=== PATIENT | female | born 1970 ===

== ENCOUNTER 2016-07-21 08:57 | Observation (INO) | payer OTHER ==
--- NOTE | 2016-07-21 10:13 | ED PDOC ---
Arrival/HPI - General Chief Complaint: ENT Problem Time Seen by Provider: 07/21/16 09:44 Historian: Patient - History of Present Illness Narrative History of Present Illness (Text): 07/21/16 10:10 46-year-old female presents today with a 2 day history of ear pain sore throat nasal congestion and cough. Patient states she's had high fevers at home. Patient states HER-2 children are sick at home with similar symptoms. Patient states they were diagnosed with the flu. Patient denies chest pain or shortness of breath. No abdominal pain. Patient states she took NyQuil yesterday denies difficulty swallowing. Denies difficulty breathing. No other complaints Past Medical History - Provider Review Nursing Documentation Reviewed: Yes - Travel History Have you recently traveled outside [place] w/in the past 3 mons?: No - Infectious Disease Hx of Infectious Diseases: None - Tetanus Immunization Tetanus Immunization: Unknown - Psychiatric Hx Anxiety: Yes Hx Substance Use: No Family/Social History - Physician Review Nursing Documentation Reviewed: Yes Family/Social History: Unknown Family HX Smoking Status: Never Smoked Hx Alcohol Use: No Hx Substance Use: No Allergies/Home Meds Allergies/Adverse Reactions: Allergies No Known Allergies Allergy (Verified 07/21/16 09:25) Home Medications: Home Meds Medication Instructions Recorded Confirmed No Known Home Med 07/21/16 07/21/16 Review of Systems - Review of Systems Constitutional: Fevers, Other (Body aches). absent: Fatigue ENT: Sore Throat, Sinus Congestion Respiratory: Cough. absent: SOB Cardiovascular: absent: Chest Pain, Palpitations Gastrointestinal: absent: Abdominal Pain, Nausea, Vomiting Genitourinary Female: absent: Dysuria Musculoskeletal: absent: Arthralgias, Back Pain, Neck Pain Skin: absent: Rash, Pruritis Neurological: absent: Headache, Dizziness Psychiatric: absent: Anxiety, Depression Physical Exam Vital Signs Reviewed: Yes Vital Signs Temp Pulse Resp BP Pulse Ox 07/21/16 14:42 82 16 139/65 97 07/21/16 12:25 76 16 100/53 L 97 07/21/16 12:00 98.1 F 07/21/16 10:42 88 16 108/54 L 95 07/21/16 09:22 102.8 F H 100 H 18 139/81 97 Temperature: Febrile Blood Pressure: Normal Pulse: Tachycardic Respiratory Rate: Normal Appearance: Positive for: Well-Appearing, Non-Toxic, Comfortable Pain Distress: Mild Mental Status: Positive for: Alert and Oriented X 3 - Systems Exam Head: Present: Atraumatic Mouth: Present: Moist Mucous Membranes Pharnyx: Present: ERYTHEMA. No: Normal, EXUDATE, TONSILS ENLARGED, Peritonsilar Swelling, Uvular Deviation, Muffled/Hoarse Voice Nose (External): Present: Atraumatic Nose (Internal): Present: Normal Inspection, Clear Mucous. No: Septal Hematoma Neck: Present: Normal Range of Motion, Trachea Midline. No: Lymphadenopathy Respiratory/Chest: Present: Clear to Auscultation, Good Air Exchange. No: Respiratory Distress, Accessory Muscle Use Cardiovascular: Present: Regular Rate and Rhythm, Normal S1, S2. No: Murmurs Abdomen: No: Tenderness Neurological: Present: GCS=15 Skin: Present: Warm, Dry, Normal Color. No: Rashes Psychiatric: Present: Alert Medical Decision Making ED Course and Treatment: 07/21/16 10:12 Patient is nontoxic well appearing in no distress. Vital signs are stable Tolerating p.o. fluids and solids Toradol 60 IM Tylenol 975 by mouth Rapid flu: wnl Rapid strep: wnl cxr;FINDINGS: LUNGS: Minimal linear bibasilar infiltrates are seen which could represent early pneumonia or chronic scarring. There are no prior studies PLEURA: No significant pleural effusion identified. No pneumothorax apparent. CARDIOVASCULAR: Normal. OSSEOUS STRUCTURES: No significant abnormalities. VISUALIZED UPPER ABDOMEN: Normal. OTHER FINDINGS: None. IMPRESSION: Minimal linear bibasilar infiltrates are seen which could represent early pneumonia or chronic scarring. There are no prior studies cbc; wnl cmp: K; 2.9 Patient given a K rider and 40 of potassium by mouth EKG: Normal sinus rhythm at 71 bpm normal axis normal intervals no ST elevations Blood cultures pending Rocephin and Zithromax started IV Case discussed in depth with Dr. Powell; will admit observational status to remote tele for hypokalemia and pneumonia impression; hypokalemia, pneumonia remote tele observation - Lab Interpretations Lab Results: 07/21/16 12:30 07/21/16 12:30 Lab Results 07/21/16 12:30: WBC 3.7 L, RBC 4.01, Hgb 11.9 L, Hct 36.0, MCV 89.8, MCH 29.7, MCHC 33.1, RDW 14.0, Plt Count 191, MPV 10.6, Gran % 69.7 H, Lymph % (Auto) 18.8 L, [place] % (Auto) 10.7 H, Eos % (Auto) 0.3 L, Baso % (Auto) 0.5, Gran # 2.60 , Lymph # 0.7 L, [place] # 0.4, Eos # 0.0, Baso # 0.02, pO2 143 H, VBG pH 7.43, VBG pCO2 43.0, VBG HCO3 28.5 H, VBG Total CO2 29.8 H, VBG O2 Sat (Calc) 99.1 H, VBG Base Excess 3.7 H, VBG Potassium 2.8 L, Glucose 110 H, Lactate 0.9, FiO2 21.0, Sodium 135.0, Potassium 2.9 L* D, Chloride 102.0, Carbon Dioxide 26, Anion Gap 14, BUN 6 L, Creatinine 0.5, Est GFR ( Amer) > 60, Est GFR (Non -Af Amer) > 60, Random Glucose 105, Calcium 8.3 L, Total Bilirubin 0.7, AST 25, ALT 37, Alkaline Phosphatase 48, Total Protein 7.3, Albumin 3.8, Globulin 3.5, Albumin/Globulin Ratio 1.1, Venous Blood Potassium 2.8 L 07/21/16 09:45: Influenza Typ A,B (EIA) Negative for flu a/b, Grp A Beta Strep Ag Negative - RAD Interpretation Radiology Orders: 07/21/16 10:37 CHEST TWO VIEWS (PA/LAT) [RAD] Stat - Medication Orders Current Medication Orders: Potassium Chloride (Potassium Chloride 20 Meq/100 Ml) 100 mls @ 50 mls/hr IVPB ONCE ONE Stop: 07/21/16 15:18 Last Admin: 07/21/16 14:13 Dose: 50 MLS/HR eMAR Start Stop Document 07/21/16 14:13 DIONNA (Rec: 07/21/16 14:14 [id number]) Intravenous Solution Start Date 07/21/16 Start Time 14:14 End Date 07/21/16 End time 16:14 Total Infusion Time 120 Discontinued Medications Acetaminophen (Tylenol 325mg Tab) 975 mg PO STAT STA Stop: 07/21/16 09:45 Last Admin: 07/21/16 10:14 Dose: 975 MG MAR Pain/Vitals Document 07/21/16 10:14 JOCasi (Rec: 07/21/16 10:14 [id number]) Sleep Is patient sleeping during reassessment? No Presence of Pain Presence of Pain Yes Pain Scale Used Pain Scale Used Numeric Azithromycin (Zithromax 500mg In Ns) 250 mls @ 167 mls/hr IVPB STAT STA PRN Reason: Protocol Stop: 07/21/16 14:48 Last Admin: 07/21/16 14:37 Dose: 167 MLS/HR eMAR Start Stop Document 07/21/16 14:37 JOL (Rec: 07/21/16 14:38 [id number]) Intravenous Solution Start Date 07/21/16 Start Time 14:37 End Date 07/21/16 End time 16:07 Total Infusion Time 90 Ceftriaxone Sodium (Rocephin 1 Gram Ivpb) 100 mls @ 200 mls/hr IVPB STAT STA PRN Reason: Protocol Stop: 07/21/16 13:48 Last Admin: 07/21/16 14:14 Dose: 200 MLS/HR eMAR Start Stop Document 07/21/16 14:14 JOCasi (Rec: 07/21/16 14:14 [id number]) Intravenous Solution Start Date 07/21/16 Start Time 14:14 End Date 07/21/16 End time 14:44 Total Infusion Time 30 Ketorolac Tromethamine (Toradol) 60 mg IM STAT STA Stop: 07/21/16 09:45 Last Admin: 07/21/16 10:13 Dose: 60 MG IM Administration Charges Document 07/21/16 10:13 JOCasi (Rec: 07/21/16 10:14 [id number]) Charges for Administration # of IM Administrations 1 Potassium Chloride (K-Dur 20 Meq Er Tab) 40 meq PO STAT STA Stop: 07/21/16 13:20 Last Admin: 07/21/16 14:13 Dose: 40 MEQ Disposition/Present on Arrival - Present on Arrival Any Indicators Present on Arrival: No History of DVT/PE: No History of Uncontrolled Diabetes: No Urinary Catheter: No History of Decub. Ulcer: No History Surgical Site Infection Following: None - Disposition Have Diagnosis and Disposition been Completed?: Yes Diagnosis: Pneumonia, Hypokalemia Disposition: HOSPITALIZED Disposition Time: 13:15 Patient Plan: Observation, Telemetry (remote) Condition: FAIR
--- NOTE | 2016-07-21 12:07 | RAD ---
HISTORY: cough/fever COMPARISON: No prior. TECHNIQUE: Chest PA and lateral FINDINGS: LUNGS: Minimal linear bibasilar infiltrates are seen which could represent early pneumonia or chronic scarring. There are no prior studies PLEURA: No significant pleural effusion identified. No pneumothorax apparent. CARDIOVASCULAR: Normal. OSSEOUS STRUCTURES: No significant abnormalities. VISUALIZED UPPER ABDOMEN: Normal. OTHER FINDINGS: None. IMPRESSION: Minimal linear bibasilar infiltrates are seen which could represent early pneumonia or chronic scarring. There are no prior studies
[2016-07-21 12:55] LABS: ADD MANUAL DIFF? NO
[2016-07-21 12:59] LABS: BASO # 0.02 K/mm3 (0.0-2.0); BASO % 0.5 % (0.0-3.0); EOS % 0.3 % (1.5-5.0); GRAN % 69.7 % (50.0-68.0); LYMPH # 0.7 (1.2-3.4); LYMPH % 18.8 % (22.0-35.0); MEAN CELL VOLUME 89.8 fL (80.0-105.0); MEAN CORPUSCULAR HEMOGLOBIN 29.7 pg (25.0-35.0); MEAN CORPUSCULAR HGB CONC 33.1 g/dl (31.0-37.0); MEAN PLATELET VOLUME 10.6 fl (7.0-11.0); MONO # 0.4 (0.1-0.6); MONO % 10.7 % (1.0-6.0); PLATELET COUNT 191 10^3/uL (120.0-450.0); WHITE BLOOD COUNT 3.7 10^3/ul (4.5-11.0)
[2016-07-21 13:01] LABS: VENOUS BLOOD GAS BASE EXCESS 3.7 mmol/L (0.0-2.0); VENOUS BLOOD PH 7.43 (7.32-7.43)
[2016-07-21 13:06] LABS: ALB/GLOB RATIO 1.1 (1.1-1.8); ALKALINE PHOSPHATASE 48 U/L (38-133); ALT/SGPT 37 U/L (7-56); AST/SGOT 25 U/L (15-39); BILIRUBIN,TOTAL 0.7 mg/dL (0.2-1.3); BLOOD UREA NITROGEN 6 mg/dL (7-21); CALCIUM 8.3 mg/dL (8.4-10.5); CARBON DIOXIDE 26 mmol/L (21-33); CHLORIDE 98 mmol/L (98-107); GFR AFRICAN-AMERICAN > 60; GLUCOSE,RANDOM 105 mg/dL (70-110); SODIUM 135 mmol/L (132-148); TOTAL PROTEIN 7.3 g/dL (5.8-8.3)
[2016-07-21 13:10] LABS: POTASSIUM 2.9 mmol/L (3.6-5.0)
[2016-07-21] MEDS ORDERED: cefTRIAXone 1 gm 100 ML IVPB STA (13:19)
[2016-07-21] MEDS ORDERED: Potassium Chloride 20 mEq ER Tab PO STA (13:19)
[2016-07-21] MEDS ORDERED: Azithromycin 500MG/NS 250ml 250 ML IVPB STA (13:19)
[2016-07-21] MEDS ORDERED: Potassium Chloride 20 mEq 100 ML IVPB ONE (13:19)
--- NOTE | 2016-07-21 15:06 | CP.PCM.PN ---
Subjective - Date & Time of Evaluation Date of Evaluation: 07/21/16 Time of Evaluation: 15:02 - Subjective Subjective: 46 y/o F with PMH of HLD presents to the ED with a 3 day hx of cold like symptoms. Pt states she has been having sore throat, ear pain, and congestion over this time. Pt states it has been getting progressively worse. Pt lives at home with her family and her 2 children have recently had similar symptoms. Pt states she took nyquil at home for her symptoms, but they did not improve. Pt also admits to having a dry cough. Pt denies CP, SOB, N/V/D, dysuria, fever, chills. PMH: HLD Family Hx: Father from lung cancer Surgical Hx: None Social Hx: Denies alcohol, tobacco, and illicit drug use. Lives at home with family. 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 Allergies: NKDA Medication: None Objective - Vital Signs/Intake and Output Vital Signs (last 24 hours): Temp Pulse Resp BP Pulse Ox 98.1 F 82 16 139/65 97 07/21/16 12:00 07/21/16 14:42 07/21/16 14:42 07/21/16 14:42 07/21/16 14:42 - Medications Medications: Current Medications Acetaminophen (Tylenol 325mg Tab) 650 mg PO Q4 PRN PRN Reason: Fever >100.4 F Enoxaparin Sodium (Lovenox) 30 mg SC DAILY OLGA PRN Reason: Protocol Potassium Chloride (Potassium Chloride 20 Meq/100 Ml) 100 mls @ 50 mls/hr IVPB ONCE ONE Stop: 07/21/16 15:18 Last Admin: 07/21/16 14:13 Dose: 50 mls/hr Azithromycin 250 mg/ Sodium (Chloride) 250 mls @ 167 mls/hr IVPB DAILY OLGA PRN Reason: Protocol Ceftriaxone Sodium (Rocephin 1 Gram Ivpb) 100 mls @ 100 mls/hr IVPB DAILY OLGA PRN Reason: Protocol Potassium Chloride 20 meq/ (Sodium Chloride) 1,010 mls @ 100 mls/hr IV .Q10H6M OLGA Pantoprazole Sodium (Protonix Ec Tab) 20 mg PO 0730 OLGA - Constitutional Appears: Non-toxic, No Acute Distress - Head Exam Head Exam: ATRAUMATIC, NORMAL INSPECTION, NORMOCEPHALIC - Eye Exam Eye Exam: EOMI, Normal appearance, PERRL - ENT Exam ENT Exam: Mucous Membranes Moist, Normal Exam, Normal Oropharynx - Neck Exam Neck Exam: Normal Inspection. absent: Lymphadenopathy - Respiratory Exam Respiratory Exam: Clear to Ausculation Bilateral, NORMAL BREATHING PATTERN. absent: Rales, Rhonchi, Wheezes - Cardiovascular Exam Cardiovascular Exam: RRR, +S1, +S2 - GI/Abdominal Exam GI & Abdominal Exam: Soft, Normal Bowel Sounds. absent: Tenderness - Extremities Exam Extremities Exam: Normal Inspection. absent: Calf Tenderness, Pedal Edema - Neurological Exam Neurological Exam: Alert, Awake, Oriented x3 - Psychiatric Exam Psychiatric exam: Normal Affect, Normal Mood - Skin Skin Exam: Intact, Normal Color, Warm Assessment and Plan - Assessment and Plan (Free Text) Plan: 46 y/o F with PMH of HLD presents to the hospital for community acquired pneumonia and incidentally found to be hypokalemic. Chest x-ray shows bibasilar infiltrates. EKG in the ED pending at this time. Pt given a total of 60 Meq of KCL in the ED. Flu and group A strep negative. Pt will be admitted to the medical floors for further care. 1. Community acquired pneumonia - Azithromycin and Rocephin - Procal ordered - Histoplasma and legionella antigens ordered - Robitussin for cough 2. Hypokalemia - NS w/ 20 Meq Kcl @ 100 - Replenished in ED - EKG pending - Recheck in AM 3. Hx of HLD - Lipid profile ordered 4. PPX - Protonix - Lovenox Seen, reviewed, and discussed with attending. Kalee, PGY-1
[2016-07-21] MEDS ORDERED: guaiFENesin 100 mg/5 ml Syrup UD PO PRN (15:15)
[2016-07-21 16:24] VITALS: RESP 18
--- NOTE | 2016-07-21 16:25 | CP.PCM.HP ---
<Danilo Granda - Last Filed: 07/21/16 16:28> History of Present Illness - History of Present Illness History of Present Illness: 46 y/o F with PMH of HLD presents to the ED with a 3 day hx of cold like symptoms. Pt states she has been having sore throat, ear pain, and congestion over this time. Pt states it has been getting progressively worse. Pt lives at home with her family and her 2 children have recently had similar symptoms. Pt states she took nyquil at home for her symptoms, but they did not improve. Pt also admits to having a dry cough. Pt denies CP, SOB, N/V/D, dysuria, fever, chills. PMH: HLD Family Hx: Father from lung cancer Surgical Hx: None Social Hx: Denies alcohol, tobacco, and illicit drug use. Lives at home with family. 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 absent: Lethargy - EENT Eyes: absent: Blurred Vision, Change in Vision Nose/Mouth/Throat: Nasal Congestion. absent: Nasal Discharge - Cardiovascular Cardiovascular: absent: Chest Pain, Irregular Heart Rhythm - Respiratory Respiratory: Cough. absent: Dyspnea - Gastrointestinal Gastrointestinal: absent: Abdominal Pain, Diarrhea, Vomiting - Genitourinary Genitourinary: absent: Dysuria, Hematuria - Integumentary Integumentary: absent: Lesions, Rash - Neurological Neurological: absent: Syncope, Tingling - Psychiatric Psychiatric: absent: Anxiety, Depression - Endocrine Endocrine: absent: Polydipsia, Polyuria Past Patient History - Infectious Disease Hx of Infectious Diseases: None - Tetanus Immunizations Tetanus Immunization: Unknown - Past Social History Smoking Status: Never Smoked - PSYCHIATRIC Hx Anxiety: Yes Hx Substance Use: No - SURGICAL HISTORY Hx Surgeries: No Meds Allergies/Adverse Reactions: Allergies Allergy/AdvReac Type Severity Reaction Status Date / Time No Known Allergies Allergy Verified 07/21/16 09:25 Physical Exam - Constitutional Appears: Non-toxic, No Acute Distress - Head Exam Head Exam: ATRAUMATIC, NORMAL INSPECTION, NORMOCEPHALIC - Eye Exam Eye Exam: EOMI, Normal appearance, PERRL - ENT Exam ENT Exam: Mucous Membranes Moist, Normal Exam - Neck Exam Neck exam: Positive for: Normal Inspection. Negative for: Lymphadenopathy - Respiratory Exam Respiratory Exam: Clear to Auscultation Bilateral, NORMAL BREATHING PATTERN. absent: Rales, Rhonchi, Wheezes - Cardiovascular Exam Cardiovascular Exam: RRR, +S1, +S2 - GI/Abdominal Exam GI & Abdominal Exam: Normal Bowel Sounds, Soft. absent: Tenderness - Extremities Exam Extremities exam: Positive for: normal inspection. Negative for: calf tenderness, pedal edema - Neurological Exam Neurological exam: Alert, Oriented x3 - Psychiatric Exam Psychiatric exam: Normal Affect, Normal Mood - Skin Skin Exam: Intact, Normal Color, Warm Results - Vital Signs Recent Vital Signs: Last Vital Signs Temp 98.1 F 07/21/16 12:00 Pulse 82 07/21/16 14:42 Resp 16 07/21/16 14:42 BP 139/65 07/21/16 14:42 Pulse Ox 97 07/21/16 14:42 - Labs Result Diagrams: 07/21/16 12:30 07/21/16 12:30 Assessment & Plan - Assessment and Plan (Free Text) Plan: 46 y/o F with PMH of HLD presents to the hospital for community acquired pneumonia and incidentally found to be hypokalemic. Chest x-ray shows bibasilar infiltrates. EKG in the ED pending at this time. Pt given a total of 60 Meq of KCL in the ED. Flu and group A strep negative. Pt will be admitted to the medical floors for further care. 1. Community acquired pneumonia - Azithromycin and Rocephin - Procal ordered - Histoplasma and legionella antigens ordered - Robitussin for cough 2. Hypokalemia - NS w/ 20 Meq Kcl @ 100 - Replenished in ED - EKG pending - Recheck in AM 3. Hx of HLD - Lipid profile ordered 4. PPX - Protonix - Lovenox Seen, reviewed, and discussed with attending. Kalee, PGY-1 <Andre RAIN,Ken - Last Filed: 07/21/16 17:12> Results - Vital Signs Recent Vital Signs: Last Vital Signs Temp 98.1 F 07/21/16 12:00 Pulse 74 07/21/16 16:00 Resp 18 07/21/16 16:00 BP 92/53 L 07/21/16 16:00 Pulse Ox 97 07/21/16 16:00 - Labs Result Diagrams: 07/21/16 12:30 07/21/16 12:30 Attending/Attestation - Attestation I have personally seen and examined this patient.: Yes I have fully participated in the care of the patient.: Yes I have reviewed all pertinent clinical information: Yes Notes (Text): 07/21/16 17:10 Patient was seen and examined with medical transcriber .Agreed with resident assessment and plan. 46 F with PMH of Obesity, Hyperlipidemia, recent sick contact with fever and cough likely viral syndrome, may have right lower lobe Pneumonia. Agreed with antibiotics for now, will check procalcitonin level, if normal, will stop antibiotics. We will follow up cultures Hypokalemia , getting replacement, will follow up LABS. Management plan was discussed in detail with patient Education was provided.
[2016-07-21 17:13] LABS: CHOLESTEROL 133 mg/dL (130-200)
[2016-07-21 22:08] VITALS: BMI 27.4
[2016-07-21] MEDS ORDERED: Pneumococcal 23-Valent Vaccine IM ONE (22:08)
[2016-07-22 06:29] VITALS: O2SAT 96
[2016-07-22 06:55] LABS: HEMATOCRIT 34.1 % (36.0-48.0); MEAN CORPUSCULAR HEMOGLOBIN 30.1 pg (25.0-35.0); MEAN CORPUSCULAR HGB CONC 33.4 g/dl (31.0-37.0); MEAN PLATELET VOLUME 10.8 fl (7.0-11.0); RED CELL DISTRIBUTION WIDTH 14.2 % (11.5-14.5)
[2016-07-22 07:14] LABS: ALB/GLOB RATIO 1.1 (1.1-1.8); ALKALINE PHOSPHATASE 41 U/L (38-133); ALT/SGPT 36 U/L (7-56); AST/SGOT 29 U/L (15-39); BILIRUBIN,TOTAL 0.5 mg/dL (0.2-1.3); BLOOD UREA NITROGEN 6 mg/dL (7-21); CALCIUM 7.9 mg/dL (8.4-10.5); CARBON DIOXIDE 24 mmol/L (21-33); CHLORIDE 103 mmol/L (98-107); GFR AFRICAN-AMERICAN > 60; GLUCOSE,RANDOM 109 mg/dL (70-110); POTASSIUM 3.6 mmol/L (3.6-5.0); SODIUM 136 mmol/L (132-148); TOTAL PROTEIN 6.7 g/dL (5.8-8.3)
[2016-07-22] MEDS ORDERED: Pantoprazole 20 mg EC Tab PO SCH (07:30)
[2016-07-22] MEDS ORDERED: Benzocaine/Menthol (Cepacol) Lozenge MT PRN (07:36)
[2016-07-22 07:52] LABS: WHITE BLOOD COUNT 2.9 10^3/ul (4.5-11.0)
[2016-07-22] MEDS ORDERED: cefTRIAXone 1 gm 100 ML IVPB SCH (10:00)
[2016-07-22] MEDS ORDERED: Azithromycin 250 MG in Sodium Chloride 0.9% 250 ML IVPB SCH (10:00)
[2016-07-22] MEDS ORDERED: Enoxaparin 30 mg Syringe SC SCH (10:00)
[2016-07-22 12:36] VITALS: BP 108/62; PULSE 75; TEMP 98.7
--- NOTE | 2016-07-22 15:00 | CP.PCM.DIS ---
<Danilo Granda - Last Filed: 07/22/16 16:29> Provider - Provider Date of Admission: 07/21/16 14:25 Attending physician: Ken Powell MD Primary care physician: NO PRIMARY CARE PROVIDER Time Spent in preparation of Discharge (in minutes): 45 Diagnosis - Discharge Diagnosis (1) Hypokalemia Status: Chronic Priority: Low (2) Pneumonia Status: Acute Priority: Low (3) Neutropenia Status: Acute Priority: Medium Hospital Course - Lab Results Lab Results: Most Recent Lab Values WBC 2.9 10^3/ul (4.5-11.0) L* D 07/22/16 05:30 RBC 3.79 10^6/uL (3.5-6.1) 07/22/16 05:30 Hgb 11.4 gm/dL (12.0-16.0) L 07/22/16 05:30 Hct 34.1 % (36.0-48.0) L 07/22/16 05:30 MCV 90.0 fL (80.0-105.0) 07/22/16 05:30 MCH 30.1 pg (25.0-35.0) 07/22/16 05:30 MCHC 33.4 g/dl (31.0-37.0) 07/22/16 05:30 RDW 14.2 % (11.5-14.5) 07/22/16 05:30 Plt Count 188 10^3/uL (120.0-450.0) 07/22/16 05:30 MPV 10.8 fl (7.0-11.0) 07/22/16 05:30 Gran % 69.7 % (50.0-68.0) H 07/21/16 12:30 Lymph % (Auto) 18.8 % (22.0-35.0) L 07/21/16 12:30 [place] % (Auto) 10.7 % (1.0-6.0) H 07/21/16 12:30 Eos % (Auto) 0.3 % (1.5-5.0) L 07/21/16 12:30 Baso % (Auto) 0.5 % (0.0-3.0) 07/21/16 12:30 Gran # 2.60 (1.4-6.5) 07/21/16 12:30 Lymph # 0.7 (1.2-3.4) L 07/21/16 12:30 [place] # 0.4 (0.1-0.6) 07/21/16 12:30 Eos # 0.0 (0.0-0.7) 07/21/16 12:30 Baso # 0.02 K/mm3 (0.0-2.0) 07/21/16 12:30 pO2 143 mm/Hg (30-55) H 07/21/16 12:30 VBG pH 7.43 (7.32-7.43) 07/21/16 12:30 VBG pCO2 43.0 (40-60) 07/21/16 12:30 VBG HCO3 28.5 mmol/l (21-28) H 07/21/16 12:30 VBG Total CO2 29.8 mmol.L (22-28) H 07/21/16 12:30 VBG O2 Sat (Calc) 99.1 % (40-65) H 07/21/16 12:30 VBG Base Excess 3.7 mmol/L (0.0-2.0) H 07/21/16 12:30 VBG Potassium 2.8 mmol/L (3.6-5.2) L 07/21/16 12:30 Sodium 135.0 mmol/L (132-148) 07/21/16 12:30 Chloride 102.0 mmol/L (98-107) 07/21/16 12:30 Glucose 110 mg/dl (65-105) H 07/21/16 12:30 Lactate 0.9 mmol/L (0.7-2.1) 07/21/16 12:30 FiO2 21.0 % 07/21/16 12:30 Sodium 136 mmol/L (132-148) 07/22/16 05:30 Potassium 3.6 mmol/L (3.6-5.0) 07/22/16 05:30 Chloride 103 mmol/L (98-107) 07/22/16 05:30 Carbon Dioxide 24 mmol/L (21-33) 07/22/16 05:30 Anion Gap 13 (10-20) 07/22/16 05:30 BUN 6 mg/dL (7-21) L 07/22/16 05:30 Creatinine 0.5 mg/dL (0.5-1.4) 07/22/16 05:30 Est GFR ( Amer) > 60 07/22/16 05:30 Est GFR (Non-Af Amer) > 60 07/22/16 05:30 Random Glucose 109 mg/dL (70-110) 07/22/16 05:30 Calcium 7.9 mg/dL (8.4-10.5) L 07/22/16 05:30 Total Bilirubin 0.5 mg/dL (0.2-1.3) 07/22/16 05:30 AST 29 U/L (15-39) 07/22/16 05:30 ALT 36 U/L (7-56) 07/22/16 05:30 Alkaline Phosphatase 41 U/L (38-133) 07/22/16 05:30 Total Protein 6.7 g/dL (5.8-8.3) 07/22/16 05:30 Albumin 3.4 g/dL (3.0-4.8) 07/22/16 05:30 Globulin 3.2 gm/dL 07/22/16 05:30 Albumin/Globulin Ratio 1.1 (1.1-1.8) 07/22/16 05:30 Triglycerides 85 mg/dL (35-160) 07/21/16 12:30 Cholesterol 133 mg/dL (130-200) 07/21/16 12:30 LDL Cholesterol Direct 68 mg/dL (0-129) 07/21/16 12:30 HDL Cholesterol 33 mg/dL (29-60) 07/21/16 12:30 Procalcitonin < 0.05 NG/ML (0.19-0.49) L 07/21/16 12:30 Venous Blood Potassium 2.8 mmol/L (3.6-5.2) L 07/21/16 12:30 Influenza Typ A,B (EIA) Negative for flu a/b (NEGATIVE) 07/21/16 09:45 Grp A Beta Strep Ag Negative (NEGATIVE) 07/21/16 09:45 - Hospital Course Hospital Course: 46 y/o F with past medical history of hyperlipidemia presented with 3 days of flu-like symptoms. Patient stated having ear pain, throat pain, subjective fever, dry cough and congestion. EKG on admission showed normal sinus rhythm. CXR showed minimal linear bibasilar infiltrates for possible early pneumonia. Patient was put on Rocephin and Zithromax. Influenza A/B, Group A Strep and blood culture were negative. On admission, the patients potassium was 2.9. After receiving supplements, potassium was 3.6 by end of stay. Pt was also found to have 2.9 WBC. Follow up with PMD is suggested. Pt will continue Augmentin for 3 days as outpatient. Pt received PPV23 vaccine during the stay. Discharge Exam - Head Exam Head Exam: ATRAUMATIC, NORMAL INSPECTION, NORMOCEPHALIC - ENT Exam ENT Exam: Mucous Membranes Moist, Normal Exam - Respiratory Exam Respiratory Exam: NORMAL BREATHING PATTERN, UNREMARKABLE - Cardiovascular Exam Cardiovascular Exam: RRR, +S1, +S2 - GI/Abdominal Exam GI & Abdominal Exam: Normal Bowel Sounds, Soft. absent: Tenderness - Extremities Exam Extremities exam: normal inspection - Neurological Exam Neurological exam: Alert, Oriented x3 - Psychiatric Exam Psychiatric exam: Normal Affect, Normal Mood - Skin Skin Exam: Intact, Normal Color, Warm Discharge Plan - Discharge Medications Prescriptions: Amoxicillin/Clavulanate [Augmentin 500 MG-125 MG Tab] 1 tab PO Q12H #6 tab - Follow Up Plan Condition: FAIR Disposition: HOME/ ROUTINE Instructions: Viral Pneumonia (DC), Hypokalemia (DC), Hypokalemia (GEN) Additional Instructions: Follow up with PMD in 1 week for hospital stay and neutropenia. If symptoms worsen, please return to hospital. Referrals: PCP,NO [Primary Care Provider] - <Ken Powell MD - Last Filed: 07/22/16 17:01> Provider - Provider Date of Admission: 07/21/16 14:25 Attending physician: Ken Powell MD Primary care physician: NO PRIMARY CARE PROVIDER Hospital Course - Lab Results Lab Results: Most Recent Lab Values WBC 2.9 10^3/ul (4.5-11.0) L* D 07/22/16 05:30 RBC 3.79 10^6/uL (3.5-6.1) 07/22/16 05:30 Hgb 11.4 gm/dL (12.0-16.0) L 07/22/16 05:30 Hct 34.1 % (36.0-48.0) L 07/22/16 05:30 MCV 90.0 fL (80.0-105.0) 07/22/16 05:30 MCH 30.1 pg (25.0-35.0) 07/22/16 05:30 MCHC 33.4 g/dl (31.0-37.0) 07/22/16 05:30 RDW 14.2 % (11.5-14.5) 07/22/16 05:30 Plt Count 188 10^3/uL (120.0-450.0) 07/22/16 05:30 MPV 10.8 fl (7.0-11.0) 07/22/16 05:30 Gran % 69.7 % (50.0-68.0) H 07/21/16 12:30 Lymph % (Auto) 18.8 % (22.0-35.0) L 07/21/16 12:30 [place] % (Auto) 10.7 % (1.0-6.0) H 07/21/16 12:30 Eos % (Auto) 0.3 % (1.5-5.0) L 07/21/16 12:30 Baso % (Auto) 0.5 % (0.0-3.0) 07/21/16 12:30 Gran # 2.60 (1.4-6.5) 07/21/16 12:30 Lymph # 0.7 (1.2-3.4) L 07/21/16 12:30 [place] # 0.4 (0.1-0.6) 07/21/16 12:30 Eos # 0.0 (0.0-0.7) 07/21/16 12:30 Baso # 0.02 K/mm3 (0.0-2.0) 07/21/16 12:30 pO2 143 mm/Hg (30-55) H 07/21/16 12:30 VBG pH 7.43 (7.32-7.43) 07/21/16 12:30 VBG pCO2 43.0 (40-60) 07/21/16 12:30 VBG HCO3 28.5 mmol/l (21-28) H 07/21/16 12:30 VBG Total CO2 29.8 mmol.L (22-28) H 07/21/16 12:30 VBG O2 Sat (Calc) 99.1 % (40-65) H 07/21/16 12:30 VBG Base Excess 3.7 mmol/L (0.0-2.0) H 07/21/16 12:30 VBG Potassium 2.8 mmol/L (3.6-5.2) L 07/21/16 12:30 Sodium 135.0 mmol/L (132-148) 07/21/16 12:30 Chloride 102.0 mmol/L (98-107) 07/21/16 12:30 Glucose 110 mg/dl (65-105) H 07/21/16 12:30 Lactate 0.9 mmol/L (0.7-2.1) 07/21/16 12:30 FiO2 21.0 % 07/21/16 12:30 Sodium 136 mmol/L (132-148) 07/22/16 05:30 Potassium 3.6 mmol/L (3.6-5.0) 07/22/16 05:30 Chloride 103 mmol/L (98-107) 07/22/16 05:30 Carbon Dioxide 24 mmol/L (21-33) 07/22/16 05:30 Anion Gap 13 (10-20) 07/22/16 05:30 BUN 6 mg/dL (7-21) L 07/22/16 05:30 Creatinine 0.5 mg/dL (0.5-1.4) 07/22/16 05:30 Est GFR ( Amer) > 60 07/22/16 05:30 Est GFR (Non-Af Amer) > 60 07/22/16 05:30 Random Glucose 109 mg/dL (70-110) 07/22/16 05:30 Calcium 7.9 mg/dL (8.4-10.5) L 07/22/16 05:30 Total Bilirubin 0.5 mg/dL (0.2-1.3) 07/22/16 05:30 AST 29 U/L (15-39) 07/22/16 05:30 ALT 36 U/L (7-56) 07/22/16 05:30 Alkaline Phosphatase 41 U/L (38-133) 07/22/16 05:30 Total Protein 6.7 g/dL (5.8-8.3) 07/22/16 05:30 Albumin 3.4 g/dL (3.0-4.8) 07/22/16 05:30 Globulin 3.2 gm/dL 07/22/16 05:30 Albumin/Globulin Ratio 1.1 (1.1-1.8) 07/22/16 05:30 Triglycerides 85 mg/dL (35-160) 07/21/16 12:30 Cholesterol 133 mg/dL (130-200) 07/21/16 12:30 LDL Cholesterol Direct 68 mg/dL (0-129) 07/21/16 12:30 HDL Cholesterol 33 mg/dL (29-60) 07/21/16 12:30 Procalcitonin < 0.05 NG/ML (0.19-0.49) L 07/21/16 12:30 Venous Blood Potassium 2.8 mmol/L (3.6-5.2) L 07/21/16 12:30 Influenza Typ A,B (EIA) Negative for flu a/b (NEGATIVE) 07/21/16 09:45 Grp A Beta Strep Ag Negative (NEGATIVE) 07/21/16 09:45 Attending/Attestation - Attestation I have personally seen and examined this patient.: Yes I have fully participated in the care of the patient.: Yes I have reviewed all pertinent clinical information, including history, physical exam and plan: Yes Notes (Text): Patient was seen and examined with medical accounting clerk .Agreed with resident assessment and plan. 46 y/o F with past medical history of hyperlipidemia presented with 3 days of flu-like symptoms , was treated with IV rocephin and azithromycin, and was also treated for hypokalemia.She is feeling better, Procalcitonin level is normal.She is ambulatory , on room air, She will be discharged home with PO Augmentin and will follow up with [facility] [place] [facility]. She has Leukopenia, etiology unclear, could due to recent viral illness, will need repeat CBC in 1-2 weeks. Management plan was discussed in detail with patient Education was provided.
--- NOTE | 2016-07-22 18:07 | CARD ---
APPROVED REPORT EKG Measurement Heart [id number] <Conclusion> Normal sinus rhythm Normal ECG
== END 2016-07-22 16:15 | disposition home or self-care (01) ==
LOC: ED 08:57 → ERH 14:25 → 2RNO 18:00
PROVIDERS: ADMIT Internal Medicine; ATTEND Internal Medicine
DX: J18.9 Pneumonia, unspecified organism (principal); E87.6 Hypokalemia; D70.9 Neutropenia, unspecified; E78.5 Hyperlipidemia, unspecified
CPT/HCPCS: 36415; 71020; 80053; 80061; 82803; 84145; 85025; 85027; 86698; 87040; 87070; 87430; 87804; 93005; 96365; 96366; 96367; 96372; 99285; G0378; J0456; J0696; J1650; J1885; J3480; J7040